=== PATIENT | female | born 2000 | race Two or more races ===

== ENCOUNTER → 2024-12-29 | Emergency (ER) | payer OTHER ==
[~2024-12-29] VITALS: Ht 149.9 cm; Wt 57.2 kg
[~2024-12-29] MED LIST: ORPHENADRINE CITRATE 30 MG/ML AMPUL IM STA; ORPHENADRINE CITRATE 30 MG/ML AMPUL ONE; PROTONIX40 MG; [UNRECOGNIZED DRUG - OTHER]
== END | disposition home or self-care (01) ==
LOC: ER 14:28
DX: M54.89 Other dorsalgia (principal)